=== PATIENT | female | born 1950 | race Caucasian/White ===

== ENCOUNTER 2024-02-06 14:09 | Inpatient (IN) | payer MEDICARE, BC ==
[~2024-02-06] VITALS: Ht 152.4 cm; Wt 137.0 kg
[2024-02-06] MEDS ORDERED: REMEDY ESSENTIAL ZINC PASTE 113 GM TOP PRN (20:15)
[2024-02-06 20:45] VITALS: O2SAT 98
[2024-02-06 20:52] VITALS: BP 107/60; TEMP 97.8; O2SAT 100
[2024-02-06] MEDS ORDERED: OXYC5CAP18 PO (20:55)
[2024-02-06] MEDS ORDERED: TRAM100T23 PO (20:55)
[2024-02-06] MEDS ORDERED: CLON1TAB12 PO (20:55)
[2024-02-06] MEDS ORDERED: ALBU2.5V13 IH (20:55)
[2024-02-06] MEDS ORDERED: IPRA0.2S48 NEB (20:55)
[2024-02-06] MEDS ORDERED: VENL150C2 PO (20:55)
[2024-02-06] MEDS ORDERED: GABA800T11 PO (20:55)
[2024-02-06] MEDS ORDERED: SACU1TAB PO (20:55)
[2024-02-06] MEDS ORDERED: OXYC5TAB3 PO (20:55)
[2024-02-06] MEDS ORDERED: MAGN400O6 PO (20:55)
[2024-02-06] MEDS ORDERED: PANT40TA49 PO (20:55)
[2024-02-06] MEDS ORDERED: CEFT1PIG2 IV (20:55)
[2024-02-06] MEDS ORDERED: AMLO-212 PO (20:55)
[2024-02-06] MEDS ORDERED: ALLO100T PO (20:55)
[2024-02-06] MEDS ORDERED: BACL10TA PO (20:55)
[2024-02-06] MEDS ORDERED: LEVO50TA8 PO (20:55)
[2024-02-06] MEDS ORDERED: ZOLP5TAB8 PO (20:55)
[2024-02-06] MEDS ORDERED: APIX5TAB4 PO (20:55)
[2024-02-06] MEDS ORDERED: FLUT100B3 IH (20:55)
[2024-02-06] MEDS ORDERED: CARV6.252 PO (20:55)
[2024-02-06] MEDS ORDERED: MAG-89 PO (20:55)
[2024-02-06] MEDS ORDERED: ACET-3117 PO (20:55)
[2024-02-06] MEDS ORDERED: MAG HYDROX/AL HYDROX/SIMETH 30 ML LIQUID UDC PO PRN (21:15)
[2024-02-06] MEDS ORDERED: ACETAMINOPHEN 325 MG TABLET PO PRN (21:15)
[2024-02-06] MEDS ORDERED: TRAMADOL HCL 50 MG TABLET PO PRN (21:15)
[2024-02-06] MEDS ORDERED: MAGNESIUM HYDROXIDE 30 ML LIQUID UDC PO PRN (21:15)
[2024-02-07] MEDS: CLONAZEPAM 1 MG TABLET PO PRN (05:54)
[2024-02-07] MEDS: LEVOTHYROXINE SODIUM 50 MCG TABLET PO SCH (06:30)
[2024-02-07] MEDS: PANTOPRAZOLE SODIUM 40 MG TABLET.DR PO SCH (06:30)
[2024-02-07 06:39] VITALS: BP 134/69; TEMP 98.2; O2SAT 100
[2024-02-07] MEDS ORDERED: VENLAFAXINE XR 75 MG TAB.ER.24H PO SCH (09:00)
[2024-02-07] MEDS ORDERED: BACLOFEN 10 MG TABLET PO SCH (09:00)
[2024-02-07] MEDS ORDERED: APIXABAN 2.5 MG TABLET PO SCH (09:00)
[2024-02-07] MEDS: ALLOPURINOL 100 MG TABLET PO SCH (11:12)
[2024-02-07] MEDS: SACUBITRIL/VALSARTAN 24 MG-26 TABLET PO SCH (11:12)
[2024-02-07] MEDS: FLUTICASONE/VILANTEROL 1 EACH BLST.W.DEV INH SCH (11:12)
[2024-02-07] MEDS: VENLAFAXINE XR 150 MG CAP.SR.24H PO SCH (11:13)
[2024-02-07] MEDS: CARVEDILOL 6.25 MG TABLET PO SCH (11:13)
[2024-02-07] MEDS: GABAPENTIN 400 MG CAPSULE PO SCH (11:14)
[2024-02-07] MEDS: AMOXICILLIN-CLAVUL 875-125MG TABLET PO SCH ×2 (11:14→20:06)
[2024-02-07] MEDS: APIXABAN 5 MG TABLET PO SCH (11:15)
[2024-02-07 12:50] LABS: CALCIUM 9.4 mg/dL (8.5-10.1); CREATININE 0.8 mg/dL (0.6-1.3); POTASSIUM 4.2 mmol/L (3.5-5.1)
[2024-02-07 13:04] LABS: BASOPHILS % (AUTO) 0.6 % (0.0-2.0); EOSINOPHILS # (AUTO) 0.2 K/uL (0.0-0.7); EOSINOPHILS % (AUTO) 2.2 % (0.0-7.0); HEMATOCRIT 38.9 % (31.2-41.9); HEMOGLOBIN 12.3 g/dL (10.9-14.3); LYMPHOCYTES # (AUTO) 1.1 K/uL (0.8-4.8); LYMPHOCYTES % (AUTO) 13.9 % (20.5-51.5); MEAN CORPUSCULAR HGB CONC 32 g/dL (32.3-35.6); MEAN CORPUSCULAR VOLUME 82.4 fL (75.5-95.3); MONOCYTES # (AUTO) 0.8 K/uL (0.1-1.30); MONOCYTES % (AUTO) 9.9 % (0.0-11.0); NEUTROPHILS # (AUTO) 5.6 K/uL (1.8-8.9); NEUTROPHILS % (AUTO) 73.4 % (38.5-71.5); PLATELET COUNT (AUTO) 307 K/uL (179-408); RED BLOOD CELL COUNT(AUTO) 4.72 MIL/uL (3.63-4.92); RED CELL DISTRIBUTION WIDTH 19.5 % (12.3-17.7); WHITE BLOOD COUNT (AUTO) 7.7 K/uL (3.8-11.8)
[2024-02-07 14:01] LABS: DIFFERENTIAL COMMENT 1
[2024-02-07 14:36] VITALS: O2SAT 98
[2024-02-07 15:58] VITALS: BP 111/42; TEMP 98.4; O2SAT 99
[2024-02-07 20:00] VITALS: BP 150/76; TEMP 98.8; O2SAT 97
[2024-02-07] MEDS: OXYCODONE HCL 5 MG TABLET PO PRN (20:06)
[2024-02-07] MEDS: AMLODIPINE 5 MG TABLET PO SCH (20:06)
[2024-02-07 20:37] VITALS: O2SAT 98
[2024-02-07] MEDS ORDERED: ZOLPIDEM 5 MG TABLET PO PRN (21:00)
[2024-02-08] VITALS (9 sets, daily range): BP systolic 118–127; BP diastolic 53–70; TEMP 97.7–98.7; O2SAT 93–100
[2024-02-08] MEDS: IPRATROPIUM BROMIDE 0.5 MG/2.5 ML NEBU NEB PRN (07:48)
[2024-02-08] MEDS: ALBUTEROL SULFATE 2.5 MG/ 0.5 ML NEBU IH PRN (07:48)
[2024-02-09 07:02] VITALS: BP 128/64; TEMP 98.6; O2SAT 95
[2024-02-09] MEDS ORDERED: MISCELLANEOUS MED PO PRN (09:00)
[2024-02-09 09:53] LABS: *BILIRUBIN,URIN NEGATIVE (NEGATIVE); *BLOOD, URINE NEGATIVE (NEGATIVE); *CLARITY,URINE CLEAR (CLEAR); *COLOR,URINE YELLOW (YELLOW); *KETONES,URINE NEGATIVE (NEGATIVE); *PROTEIN,URINE NEGATIVE (NEGATIVE); *UROBILINOGEN,URINE 0.2 E.U./dl (NORMAL); LEUKOCYTE ESTERASE ,URINE NEGATIVE (NEGATIVE); NITRITE, URINE NEGATIVE (NEGATIVE); UGLUCOSE NEGATIVE (NEGATIVE)
[2024-02-09 15:55] VITALS: BP 123/77; TEMP 97.9; O2SAT 95
[2024-02-09 16:30] VITALS: O2SAT 96
[2024-02-09 20:08] VITALS: BP 125/57; TEMP 97.8; O2SAT 96
[2024-02-09] MEDS: AMOXICILLIN-CLAVUL 875-125MG TABLET PO SCH (20:19)
[2024-02-09 23:38] VITALS: O2SAT 96
[2024-02-09 23:50] VITALS: O2SAT 99
[2024-02-10] VITALS (9 sets, daily range): BP systolic 142–153; BP diastolic 51–64; TEMP 97.7–98.5; O2SAT 94–99
[2024-02-10] MEDS: EMPAGLIFLOZIN 25 MG TABLET PO SCH (08:00)
[2024-02-10] MEDS ORDERED: REMEDY ESSENTIAL ZINC PASTE 113 GM TOP PRN (09:45)
[2024-02-10] MEDS: FLUCONAZOLE 100 MG TABLET PO ONE (12:10)
[2024-02-10] MEDS ORDERED: AMLODIPINE 10 MG TABLET PO SCH (13:01)
[2024-02-10] MEDS ORDERED: IOHEXOL 350 100 ML INFUS..BTL ONE (13:16)
[2024-02-10] MEDS ORDERED: IV NORMAL SALINE 250 ML IV ONE (13:16)
[2024-02-10] MEDS ORDERED: SWABABLE VALVE TRANSFER SET EA MC ONE (13:16)
[2024-02-10] MEDS: PHENAZOPYRIDINE HCL 100 MG TABLET PO SCH (13:47)
[2024-02-10] MEDS: IPRATROPIUM BROMIDE 0.5 MG/2.5 ML NEBU NEB SCH (14:30)
[2024-02-10] MEDS: ALBUTEROL SULFATE 2.5 MG/ 0.5 ML NEBU IH SCH (14:30)
[2024-02-10] MEDS: METHOCARBAMOL 750 MG TABLET PO PRN (20:21)
[2024-02-11] VITALS (16 sets, daily range): BP systolic 118–119; BP diastolic 50–70; TEMP 97.9–98.3; O2SAT 93–99
[2024-02-11] MEDS: AMLODIPINE 10 MG TABLET PO SCH (00:53)
[2024-02-11] MEDS: LIDOCAINE 5% PATCH TD SCH (08:29)
[2024-02-12] VITALS (15 sets, daily range): BP systolic 110–166; BP diastolic 53–87; TEMP 98.3–98.5; O2SAT 94–99
[2024-02-13] VITALS (16 sets, daily range): BP systolic 117–128; BP diastolic 48–54; TEMP 98–98.2; O2SAT 93–100
[2024-02-13] MEDS: BACLOFEN 10 MG TABLET PO PRN (17:06)
[2024-02-14] VITALS (11 sets, daily range): BP systolic 128–163; BP diastolic 65–77; TEMP 97.1–98.5; O2SAT 96–100
[2024-02-15] VITALS (12 sets, daily range): BP systolic 105–162; BP diastolic 58–80; TEMP 97.1–98.6; O2SAT 94–99
[2024-02-16] VITALS (13 sets, daily range): BP systolic 133–157; BP diastolic 63–75; TEMP 98–98.7; O2SAT 94–99
[2024-02-16] MEDS: ONDANSETRON HCL 4 MG TABLET PO PRN (19:00)
[2024-02-16] MEDS: NORMAL SALINE NASAL 45 ML BOTTLE NS PRN (21:04)
[2024-02-17] VITALS (15 sets, daily range): BP systolic 124–144; BP diastolic 57–67; TEMP 97.4–98; O2SAT 93–99
[2024-02-18] VITALS (14 sets, daily range): BP systolic 133–160; BP diastolic 61–86; TEMP 97.3–98.7; O2SAT 95–99
[2024-02-19] VITALS (10 sets, daily range): BP systolic 125–148; BP diastolic 62–75; TEMP 97.7–98.2; O2SAT 91–98
[2024-02-20] VITALS (14 sets, daily range): BP systolic 134–150; BP diastolic 50–74; TEMP 98–98.4; O2SAT 93–99
[2024-02-20 07:39] LABS: BASOPHILS % (AUTO) 0.9 % (0.0-2.0); EOSINOPHILS # (AUTO) 0.2 K/uL (0.0-0.7); EOSINOPHILS % (AUTO) 2.9 % (0.0-7.0); HEMATOCRIT 36.8 % (31.2-41.9); HEMOGLOBIN 11.3 g/dL (10.9-14.3); LYMPHOCYTES % (AUTO) 18.7 % (20.5-51.5); MEAN CORPUSCULAR HGB CONC 31 g/dL (32.3-35.6); MEAN CORPUSCULAR VOLUME 81.5 fL (75.5-95.3); MONOCYTES # (AUTO) 0.5 K/uL (0.1-1.30); NEUTROPHILS # (AUTO) 3.6 K/uL (1.8-8.9); NEUTROPHILS % (AUTO) 67.5 % (38.5-71.5); PLATELET COUNT (AUTO) 295 K/uL (179-408); RED BLOOD CELL COUNT(AUTO) 4.52 MIL/uL (3.63-4.92); RED CELL DISTRIBUTION WIDTH 19.7 % (12.3-17.7); WHITE BLOOD COUNT (AUTO) 5.3 K/uL (3.8-11.8)
[2024-02-20 07:51] LABS: DIFFERENTIAL COMMENT 1
[2024-02-20 08:13] LABS: THYROID STIMULATING HORMONE 4.169 mIU/mL (0.358-3.740)
[2024-02-20 08:29] LABS: ALANINE AMINOTRANSFERASE 27 U/L (14-59); ALKALINE PHOSPHATASE 87 U/L (50-136); ASPARTATE AMINOTRANSFERASE 11 U/L (15-37); BILIRUBIN,TOTAL 0.2 mg/dL (0.2-1.0); CALCIUM 8.6 mg/dL (8.5-10.1); CARBON DIOXIDE 27 mmol/L (21-32); CHLORIDE 105 mmol/L (98-107); CHOLESTEROL 175 mg/dL (<200); CREATININE 0.9 mg/dL (0.6-1.3); GLUCOSE 155 mg/dL (74-106); HDL CHOLESTEROL 53 mg/dL (40-60); IRON, SERUM 17 ug/dL (50-175); MAGNESIUM 1.9 mg/dL (1.8-2.4); NT-PRO BNP 209 pg/mL (0-125); PHOSPHOROUS 3.9 mg/dL (2.5-4.9); POTASSIUM 3.7 mmol/L (3.5-5.1); SODIUM SERUM 141 mmol/L (136-145); TOTAL PROTEIN, SERUM 7.1 g/dL (6.4-8.2); TRIGLYCERIDES 71 MG/DL (30-150); UREA NITROGEN, BLOOD 30 mg/dL (7-18)
[2024-02-21] VITALS (15 sets, daily range): BP systolic 146–154; BP diastolic 70–79; TEMP 96.1–98.6; O2SAT 94–99
[2024-02-21] MEDS: AMOXICILLIN-CLAVUL 875-125MG TABLET PO SCH (12:53)
[2024-02-22] VITALS (12 sets, daily range): BP systolic 124–144; BP diastolic 56–63; TEMP 97.5–98; O2SAT 94–99
[2024-02-22] MEDS: CARVEDILOL 12.5 MG TABLET PO SCH (10:34)
[2024-02-22] MEDS: SIMETHICONE 80 MG TAB.CHEW PO PRN (16:55)
[2024-02-22] MEDS: ATORVASTATIN 10 MG TABLET PO SCH (21:54)
[2024-02-23] VITALS (11 sets, daily range): BP systolic 122–149; BP diastolic 57–62; TEMP 97.6–97.9; O2SAT 94–99
== END 2024-02-23 21:53 | DRG 948 ==
PROVIDERS: ADMIT Physical Medicine & Rehabilitation Pain Medicine; ATTEND Physical Medicine & Rehabilitation Pain Medicine
DX: R53.1 Weakness (principal); D68.59 Other primary thrombophilia; I50.22 Chronic systolic (congestive) heart failure; E03.9 Hypothyroidism, unspecified; E66.01 Morbid (severe) obesity due to excess calories; F32.A Depression, unspecified; T67.5XXD Heat exhaustion, unspecified, subsequent encounter; X30.XXXD Exposure to excessive natural heat, subsequent encounter; E61.1 Iron deficiency; E78.5 Hyperlipidemia, unspecified; E86.0 Dehydration; F41.9 Anxiety disorder, unspecified; G47.33 Obstructive sleep apnea (adult) (pediatric); I11.0 Hypertensive heart disease with heart failure; I25.10 Atherosclerotic heart disease of native coronary artery without angina pectoris; K44.9 Diaphragmatic hernia without obstruction or gangrene; M21.061 Valgus deformity, not elsewhere classified, right knee; Z86.711 Personal history of pulmonary embolism; Z86.718 Personal history of other venous thrombosis and embolism; Z87.820 Personal history of traumatic brain injury; Z90.49 Acquired absence of other specified parts of digestive tract
CPT/HCPCS: 36415; 71045; 71275; 82652; 83550; 83735; 84100; 84443; 85025; 85610; 93005; 93307; 94640; 94660; 94760; 97535-GO-CO; A4663; J3590; J8499; Q0162; Q9967